=== PATIENT | female | born 1990 | race Two or more races ===

== ENCOUNTER 2018-04-28 09:24 | Emergency (ER) | payer MEDICAID ==
[~2018-04-28] VITALS: Ht 160 cm; Wt 72.6 kg
[2018-04-28 09:42] VITALS: BP 127/75
== END 2018-04-28 16:46 | disposition left against medical advice (07) ==
LOC: ER 09:24
DX: R51 Headache (principal); R05 Cough; Z53.29 Procedure and treatment not carried out because of patient's decision for other reasons